=== PATIENT | male | born 1995 | race Caucasian/White ===

== ENCOUNTER 2021-04-28 15:03 | Inpatient (IN) | payer SELFPAY ==
[2021-04-28 15:05] VITALS: BMI 24.3
[2021-04-28 15:35] VITALS: BP 118/73; PULSE 85; RESP 16; TEMP 36.6; O2SAT 98
[2021-04-28 20:07] VITALS: BP 125/75; PULSE 77; RESP 18; O2SAT 98
[2021-04-29 06:00] VITALS: BP 109/71; PULSE 60; RESP 15; O2SAT 98
[2021-04-29] MEDS: acetaminophen 325 mg Tablet 650 MG PO ×2 (09:39→18:28)
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
[2021-04-29 14:00] VITALS: RESP 18
--- NOTE | 2021-04-29 14:57 | PC.NURSE ---
patient refused vital signs.
[2021-04-29 21:41] VITALS: RESP 16
[2021-04-30 06:00] VITALS: RESP 18
[2021-04-30] MEDS: nicotine 2 mg Gum BUCCAL (12:33)
[2021-04-30 14:00] VITALS: BP 122/70; PULSE 66; RESP 18; TEMP 36.7; O2SAT 98
--- NOTE | 2021-04-30 17:56 | P.NPUPN_ITS ---
Subjective NPU Subjective: Interval history: Patient presents today after a lengthy discussion about the treatment team's concerns able to identify that he is actively using methamphetamines and needs to stop. We discussed some of the concerns of the family surrounding his significant other and his role in making that a nonissue. We discussed him working with the treatment team to identify appropriate follow-up. We discussed the likelihood of discharge in the morning. Mental Status Exam MSE Comments: This is a well-nourished, well-developed, white male, with adequate dress, grooming, and eye contact. No abnormal movements. Cooperative with exam in no acute distress. Speech was normal rate and volume. Mood described as a little better; affect congruent. Thought process, organized. Thought content: patient denied any suicidal or homicidal ideation, there were no delusions reported or noted, patient denied any auditory or visual hallucinations. Attention, concentration, and memory appear intact but none were formally tested. He is alert and oriented times three. Insight and judgment are limited. Impulse control is impaired. Vitals/I&O/Wt Last Vital Signs Temp 98.0 F 04/30/21 14:00 Pulse 66 04/30/21 14:00 Resp 16 04/30/21 21:20 BP 122/70 04/30/21 14:00 Pulse Ox 98 04/30/21 14:00 A&P Additional A&P Information (1) Methamphetamine dependence: (2) Partner relational problem: (3) Parent-child relational problem: (4) Psychosis: Additional A&P Information This is a 25 -year-old, white male, with parent-child relational problem, partner relational problem, active methamphetamine addiction, and recent psychos is, likely secondary to the methamphetamine use, who presents on a 96-hour hold, secondary to reports of aggression towards self and others. 1. Continue current medication. 2. Encourage individual, group, and milieu therapy. 3. Continue q-15 minute checks for safety. 4. Recommend sober living treatment at the highest level of care to which the patient is willing to commit. Involuntary Hold Information 96 Hour Hold: 96 Hour Involuntary Admission: Yes 96 Hour Hold Ending Date: 04/28/21 96 Hour Hold Ending Time: 00:01 Attestations NPU Medical Necessity Statement*: Inpatient hospitalization is medically necessary and the clinically appropriate intervention, at this time. We will monitor medications and make changes as indicated. Likely length of stay is 1-3 days. Coding Level of Care Code Acute Profile [employer] for g Ryan
[2021-04-30 21:20] VITALS: RESP 16
[2021-05-01 06:00] VITALS: BP 138/119; PULSE 98; RESP 16; O2SAT 99
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
[2021-05-01 11:27] VITALS: BP 138/119; PULSE 98; RESP 16; TEMP 36.7; O2SAT 99
== END 2021-05-01 17:10 | disposition home or self-care (01) | DRG 885 ==
PROVIDERS: Admitting Provider Psychiatry & Neurology Psychiatry; Visit Provider Psychiatry & Neurology Psychiatry
DX: F29 Unspecified psychosis not due to a substance or known physiological condition (principal); R45.851 Suicidal ideations; F15.20 Other stimulant dependence, uncomplicated; Z86.16 Personal history of COVID-19; F17.210 Nicotine dependence, cigarettes, uncomplicated; F17.220 Nicotine dependence, chewing tobacco, uncomplicated; F12.90 Cannabis use, unspecified, uncomplicated; Z63.9 Problem related to primary support group, unspecified; Z62.820 Parent-biological child conflict
CPT/HCPCS: 90471; 90686; 97150; 97165